=== PATIENT | female | born 1945 | race Caucasian/White ===

== ENCOUNTER 2024-05-15 05:07 | Emergency (ER) | payer MEDICARE, OTHER ==
[2024-05-15] MEDS ORDERED: Orphenadrine Citrate 60 MG/2 ML VIAL ONE (05:48)
[2024-05-15 06:04] LABS: %Basophils 1.3 % (0.0-1.0); %Eosinophils 7.3 % (0.0-10.0); %Monocytes 13.4 % (0.0-10.0); %Neutrophils 52.9 % (42.0-75.0); Hematocrit 40.6 % (36.0-47.0); Hemoglobin 13.3 g/dL (12.0-16.0); Mean Corpuscular HGB CONC 32.8 g/dL (32.0-36.0); Mean Corpuscular Hemoglobin 29.8 pg (27.0-31.0); Mean Platelet Volume 11.3 fL (7.4-10.4); Platelet Count 308 10x3/uL (130-400); RBC Distribution Width 13.5 % (11.5-14.5); Red Blood Cell (RBC) Count 4.46 mill/uL (4.20-5.40)
[2024-05-15 06:29] LABS: ALT (SGPT) 32 U/L (8-55); AST (SGOT) 43 U/L (5-34); Alkaline Phosphatase 90 U/L (40-110); Anion Gap 13 mmol/L (10-20); BUN (Urea Nitrogen) 26 mg/dL (9.8-20.1); Bilirubin, Total 0.4 mg/dL (0.2-1.2); Calc. Creatinine Clearance 0 mL/min (70-130); Calcium 8.8 mg/dL (7.8-10.44); Carbon Dioxide 24 mmol/L (23-31); Chloride 108 mmol/L (98-107); Estimated GFR 44; Globulin 4.4 g/dL (2.4-3.5); Glucose 124 mg/dL (83-110); Potassium 4.2 mmol/L (3.5-5.1); Protein, Total 7.4 g/dL (5.8-8.1); Sodium 141 mmol/L (136-145)
[2024-05-15] MEDS ORDERED: Iopamidol-370 76% 500 ML MDV (1 ML CHARGE) ONE (10:42)
== END 2024-05-15 08:28 | disposition home or self-care (01) ==
LOC: ERS 05:07
DX: M54.32 Sciatica, left side (principal); I10 Essential (primary) hypertension
CPT/HCPCS: 74177; 80053; 85025; 96374; 99284; J2360; Q9967